=== PATIENT | male | born 1935 | race Caucasian/White ===

== ENCOUNTER 2016-07-24 08:31 | Outpatient (CLI) | payer MEDICARE, OTHER | END 2016-07-24 08:32 | disposition home or self-care (01) | DX: I10 Essential (primary) hypertension (principal); Z79.01 Long term (current) use of anticoagulants; E78.00 Pure hypercholesterolemia, unspecified ==

== ENCOUNTER 2016-08-23 08:08 | Outpatient (CLI) | payer MEDICARE, OTHER | END 2016-08-23 08:09 | disposition home or self-care (01) | DX: D75.89 Other specified diseases of blood and blood-forming organs (principal); R06.09 Other forms of dyspnea; R53.83 Other fatigue; D72.819 Decreased white blood cell count, unspecified ==

== ENCOUNTER 2016-09-02 08:21 | Outpatient (CLI) | payer MEDICARE, OTHER | END 2016-09-02 08:22 | disposition home or self-care (01) | DX: R06.00 Dyspnea, unspecified (principal); I07.1 Rheumatic tricuspid insufficiency ==

== ENCOUNTER 2016-09-06 08:29 | Outpatient (CLI) | payer MEDICARE, OTHER | END 2016-09-06 08:30 | disposition home or self-care (01) | LOC: LAB.F 08:29 | PROVIDERS: ATTEND Internal Medicine | DX: Z79.01 Long term (current) use of anticoagulants (principal) | CPT/HCPCS: 85610 ==

== ENCOUNTER 2016-09-26 16:10 | Outpatient (CLI) | payer MEDICARE, OTHER ==
--- NOTE | 2016-09-27 09:34 | XRAY Report ---
TWO VIEW CHEST: 09/26/2016 CLINICAL INDICATION: Dyspnea on exertion. COMPARISON: 09/30/2015. FINDINGS: Frontal and lateral views of the chest demonstrate a normal cardiac silhouette. There is a left subclavian single-chamber pacemaker now in place. The lungs are clear. No effusion or pneumotho rax is present. IMPRESSION: NEW LEFT SUBCLAVIAN PACEMAKER. NO EVIDENCE OF ACUTE CARDIOPULMONARY DISEASE. JOB #: [id number] EXT JOB #:[id number]
== END 2016-09-26 16:11 | disposition home or self-care (01) ==
LOC: DI.S 16:10
PROVIDERS: ATTEND Internal Medicine
DX: R06.00 Dyspnea, unspecified (principal); Z95.0 Presence of cardiac pacemaker
CPT/HCPCS: 71020

== ENCOUNTER 2016-10-25 08:32 | Outpatient (CLI) | payer MEDICARE, OTHER ==
[2016-10-25 12:02] LABS: BASOPHILS % (AUTO) 0.4 %; EOSINOPHILS # (AUTO) 0.1 10^3/uL (0.0-0.7); EOSINOPHILS % (AUTO) 3.9 %; HCT - HEMATOCRIT 46.5 % (42.0-52.0); HGB - HEMOGLOBIN 15.8 g/dL (14.0-18.0); LYMPHOCYTES % (AUTO) 27.6 %; MEAN CORPUSCULAR HEMOGLOBIN 34.7 pg (27.0-31.0); MEAN CORPUSCULAR HGB CONC 34.1 g/dL (32.0-36.0); MEAN CORPUSCULAR VOLUME 101.8 fL (80.0-94.0); MEAN PLATELET VOLUME 10.7 fL (7.4-11.4); MONOCYTES # (AUTO) 0.4 10^3/uL (0.0-1.0); MONOCYTES % (AUTO) 11.8 %; NEUTROPHILS % (AUTO) 56.3 %; NUCLEATED RED BLOOD CELLS AUTO 0.1 /100WBC; RED BLOOD COUNT 4.56 10^6/uL (4.70-6.10); RED CELL DISTRIBUTION WIDTH 13.4 % (12.0-15.0); UNCORRECTED WHITE BLOOD COUNT 3.5 x10^3/uL; WHITE BLOOD COUNT 3.5 x10^3/uL (4.8-10.8)
[2016-10-25 12:20] LABS: CALCIUM 9.4 mg/dL (8.5-10.3); CREATININE 0.8 mg/dL (0.6-1.2); POTASSIUM 4.9 mmol/L (3.5-5.0)
== END 2016-10-25 08:33 | disposition home or self-care (01) ==
LOC: LAB.F 08:32
PROVIDERS: ATTEND Internal Medicine
DX: I10 Essential (primary) hypertension (principal); R06.09 Other forms of dyspnea
CPT/HCPCS: 36415; 80048; 83880; 85025

== ENCOUNTER 2016-11-28 07:59 | Outpatient (CLI) | payer MEDICARE, OTHER | END 2016-11-28 08:00 | disposition home or self-care (01) | LOC: LAB.F 07:59 | PROVIDERS: ATTEND Internal Medicine | DX: Z79.01 Long term (current) use of anticoagulants (principal) | CPT/HCPCS: 85610 ==

== ENCOUNTER 2016-12-30 10:58 | Outpatient (CLI) | payer MEDICARE, OTHER | END 2016-12-30 10:59 | disposition home or self-care (01) | LOC: LAB.F 10:58 | PROVIDERS: ATTEND Internal Medicine | DX: Z79.01 Long term (current) use of anticoagulants (principal) | CPT/HCPCS: 85610 ==

== ENCOUNTER 2017-02-04 07:20 | Outpatient (CLI) | payer MEDICARE, OTHER ==
[2017-02-04 12:14] LABS: INR 3.4 (0.8-1.2); PT - PROTHROMBIN TIME 38.5 secs (9.9-12.6)
== END 2017-02-04 07:21 | disposition home or self-care (01) ==
LOC: LAB.F 07:20
PROVIDERS: ATTEND Internal Medicine
DX: Z79.01 Long term (current) use of anticoagulants (principal)
CPT/HCPCS: 36415; 85610

== ENCOUNTER 2017-02-10 07:25 | Outpatient (CLI) | payer MEDICARE, OTHER | END 2017-02-10 07:26 | disposition home or self-care (01) | LOC: LAB.F 07:25 | PROVIDERS: ATTEND Internal Medicine | DX: Z79.01 Long term (current) use of anticoagulants (principal) | CPT/HCPCS: 85610 ==

== ENCOUNTER 2017-03-07 07:22 | Outpatient (CLI) | payer MEDICARE, OTHER | END 2017-03-07 07:23 | disposition home or self-care (01) | LOC: LAB.F 07:22 | PROVIDERS: ATTEND Physician Assistant Medical | DX: Z79.01 Long term (current) use of anticoagulants (principal); I48.91 Unspecified atrial fibrillation | CPT/HCPCS: 85610 ==

== ENCOUNTER 2017-03-17 07:20 | Outpatient (CLI) | payer MEDICARE, OTHER | END 2017-03-17 07:21 | disposition home or self-care (01) | LOC: LAB.F 07:20 | PROVIDERS: ATTEND Physician Assistant Medical | DX: Z79.01 Long term (current) use of anticoagulants (principal); I48.91 Unspecified atrial fibrillation | CPT/HCPCS: 85610 ==

== ENCOUNTER 2017-03-31 08:06 | Outpatient (CLI) | payer MEDICARE, OTHER | END 2017-03-31 08:07 | disposition home or self-care (01) | LOC: LAB.F 08:06 | PROVIDERS: ATTEND Physician Assistant Medical | DX: Z79.01 Long term (current) use of anticoagulants (principal); I48.91 Unspecified atrial fibrillation | CPT/HCPCS: 85610 ==

== ENCOUNTER 2017-04-18 07:04 | Outpatient (CLI) | payer MEDICARE, OTHER ==
[2017-04-18 11:43] LABS: CALCIUM 9.4 mg/dL (8.5-10.3); CREATININE 0.8 mg/dL (0.6-1.2)
== END 2017-04-18 07:05 | disposition home or self-care (01) ==
LOC: LAB.F 07:04
PROVIDERS: ATTEND Physician Assistant Medical
DX: R06.02 Shortness of breath (principal); I51.9 Heart disease, unspecified
CPT/HCPCS: 36415; 80048; 83880

== ENCOUNTER 2017-04-21 15:41 | Emergency (ER) | payer MEDICARE, OTHER ==
[2017-04-21] MEDS ORDERED: SACCHAROMYCES BOULARDII 250 MG CAPSULE PO STA (17:21)
[2017-04-21] MEDS ORDERED: BENZONATATE 100 MG CAPSULE PO STA (17:21)
[2017-04-21] MEDS ORDERED: LOPERAMIDE 2 MG CAPSULE PO STA (17:21)
[2017-04-21] MEDS ORDERED: OSELTAMIVIR 75 MG CAPSULE PO STA (17:28)
--- NOTE | 2017-04-21 17:31 | ED Physician Documentation ---
History of Present Illness - Stated complaint Stated Complaint: COUGH/DIARRHEA - Chief complaint Chief Complaint: General PD PAST MEDICAL HISTORY - Past Medical History Past Medical History: Yes Cardiovascular: Hypertension, High cholesterol, [place] Respiratory: None Neuro: None Endocrine/Autoimmune: Type 1 diabetes GI: None : Benign prostate hypertrophy HEENT: Chronic vision loss Psych: None Musculoskeletal: None Derm: None - Past Surgical History Past Surgical History: Yes General: Appendectomy Ortho: Hip replacement Cardiovascular: Coronary stent - Present Medications Home Medications: Ambulatory Orders Medication Instructions Recorded Confirmed Alfuzosin HCl [Alfuzosin HCl ER] 10 mg PO DAILY 09/30/15 04/21/17 Aspirin [Aspir-Low] 81 mg PO DAILY 09/30/15 04/21/17 Finasteride 5 mg PO DAILY 09/30/15 04/21/17 Losartan [Cozaar] 25 mg PO DAILY 09/30/15 04/21/17 Metoprolol Tartrate 25 mg PO DAILY 09/30/15 04/21/17 Benzonatate [Tessalon] 100 mg PO TID PRN #20 capsule 04/21/17 Furosemide 20 mg PO DAILY 04/21/17 04/21/17 Loperamide [Imodium] 2 mg PO ONCE PRN #10 capsule 04/21/17 Oseltamivir [Tamiflu] 75 mg PO BID #9 capsule 04/21/17 Warfarin [Coumadin] 2.5 mg PO 1400 04/21/17 04/21/17 Warfarin [Coumadin] 5 mg PO 1400 04/21/17 04/21/17 - Allergies Allergies/Adverse Reactions: Allergies Allergy/AdvReac Type Severity Reaction Status Date / Time No Known Drug Allergies Allergy Verified 04/21/17 15:52 - Social History Does the pt smoke?: No Smoking Status: Never smoker Does the pt drink ETOH?: Yes Does the pt have substance abuse?: No - Immunizations Immunizations are current?: Yes Results - Vitals Vitals: Vital Signs - 24 hr 04/21/17 15:49 Temperature 37.8 C H Heart Rate 72 Respiratory 20 Rate Blood Pressure 128/48 L O2 Saturation 94 Oxygen O2 Source Room air - Labs Labs: Laboratory Tests 04/21/17 16:55 Influenza A (Rapid) POSITIVE H Influenza B (Rapid) Negative Influenza Types A,B Ag + H - Rads (name of study) CXR Radiology: See rad report (oswaldo bronchial wall thickening, atelectasis) Departure - Departure Disposition: 01 Home, Self Care Clinical Impression: Influenza A Condition: Good Instructions: ED Flu, Medication: Tamiflu (Oseltamivir) Follow-Up: Pao Ny PA-C [Primary Care Provider] - (this week for a recheck unless completely better) Prescriptions: Benzonatate [Tessalon] 100 mg PO TID PRN #20 capsule PRN Reason: to ease cough Loperamide [Imodium] 2 mg PO ONCE PRN #10 capsule PRN Reason: Diarrhea Oseltamivir [Tamiflu] 75 mg PO BID #9 capsule Comments: Influenza can be a very nasty disease. Right now it seems that you are OK to go home. take the tamiflu medication as prescribed, tessalon for the cough, imodium for the diarrhea, and tylenol for fever Rest and drink plenty of fluids But if you feel worse, please come back - some patients get so sick they need to be admitted to the hospital or develop a secondary infection such as pneumonia
--- NOTE | 2017-04-21 17:35 | XRAY Report ---
EXAM: CHEST RADIOGRAPHY EXAM DATE: 04/21/2017 04:57 PM. CLINICAL HISTORY: Cough. COMPARISON: Chest x-ray 09/30/2015. TECHNIQUE: 2 views. FINDINGS: Lungs/Pleura: No pleural effusion or pneumothorax. Bilateral bronchial wall thickening with minimal b asilar diskoid atelectasis. Mediastinum: Normal heart size with left-sided single lead pacemaker with tip at the expected right v entricular level. Aortic tortuosity with atherosclerotic calcification. Other: None. IMPRESSION: Bilateral bronchial wall thickening which can be seen in bronchitis or reactive airways d isease with basilar diskoid atelectasis. [facility] Referring Provider Line: [phone] SITE ID: [id number]
--- NOTE | 2017-04-21 17:35 | XRAY Preliminary Report ---
Exam: XR CHEST 2 VIEW X-RAY IMPRESSION: Bilateral bronchial wall thickening which can be seen in bronchitis or reactive airways d isease with basilar diskoid atelectasis. [facility] SITE ID: [id number]
[2017-04-21 17:58] VITALS: BP 140/74
== END 2017-04-21 17:58 | disposition home or self-care (01) ==
LOC: ED 15:41
DX: J10.1 Influenza due to other identified influenza virus with other respiratory manifestations (principal); E10.9 Type 1 diabetes mellitus without complications; I10 Essential (primary) hypertension; E78.00 Pure hypercholesterolemia, unspecified; Z79.82 Long term (current) use of aspirin
CPT/HCPCS: 71046; 87275; 87276; 99283; A9270

== ENCOUNTER 2017-04-29 07:09 | Outpatient (CLI) | payer MEDICARE, OTHER | END 2017-04-29 07:10 | disposition home or self-care (01) | LOC: LAB.F 07:09 | PROVIDERS: ATTEND Physician Assistant Medical | DX: Z79.01 Long term (current) use of anticoagulants (principal); I48.91 Unspecified atrial fibrillation | CPT/HCPCS: 85610 ==

== ENCOUNTER 2017-05-25 08:00 | Outpatient (CLI) | payer MEDICARE, OTHER | END 2017-05-25 23:59 | disposition home or self-care (01) | LOC: LAB.R 08:00 | PROVIDERS: ATTEND Physician Assistant Medical | DX: Z12.11 Encounter for screening for malignant neoplasm of colon (principal) | CPT/HCPCS: 82270 ==

== ENCOUNTER 2017-05-30 07:21 | Outpatient (CLI) | payer MEDICARE, OTHER | END 2017-05-30 07:22 | disposition home or self-care (01) | LOC: LAB.F 07:21 | PROVIDERS: ATTEND Physician Assistant Medical | DX: Z79.01 Long term (current) use of anticoagulants (principal); I48.91 Unspecified atrial fibrillation | CPT/HCPCS: 85610 ==

== ENCOUNTER 2017-06-04 07:07 | Outpatient (CLI) | payer MEDICARE, OTHER ==
[2017-06-04 12:11] LABS: CREATININE 0.9 mg/dL (0.6-1.2)
== END 2017-06-04 07:08 | disposition home or self-care (01) ==
LOC: LAB.F 07:07
PROVIDERS: ATTEND Internal Medicine Cardiovascular Disease
DX: R06.02 Shortness of breath (principal); I51.9 Heart disease, unspecified
CPT/HCPCS: 36415; 80048; 83880

== ENCOUNTER 2017-06-06 08:25 | Outpatient (CLI) | payer MEDICARE, OTHER | END 2017-06-06 08:26 | disposition home or self-care (01) | LOC: LAB.F 08:25 | PROVIDERS: ATTEND Physician Assistant Medical | DX: Z79.01 Long term (current) use of anticoagulants (principal); I48.91 Unspecified atrial fibrillation | CPT/HCPCS: 85610 ==

== ENCOUNTER 2017-06-13 07:10 | Outpatient (CLI) | payer MEDICARE, OTHER | END 2017-06-13 07:11 | disposition home or self-care (01) | LOC: LAB.F 07:10 | PROVIDERS: ATTEND Physician Assistant Medical | DX: I48.91 Unspecified atrial fibrillation (principal); Z79.01 Long term (current) use of anticoagulants | CPT/HCPCS: 85610 ==

== ENCOUNTER 2017-07-11 08:00 | Outpatient (CLI) | payer MEDICARE, OTHER | END 2017-07-11 08:01 | disposition home or self-care (01) | LOC: LAB.R 08:00 | PROVIDERS: ATTEND Physician Assistant Medical | DX: Z79.01 Long term (current) use of anticoagulants (principal); I48.91 Unspecified atrial fibrillation | CPT/HCPCS: 85610 ==

== ENCOUNTER 2017-08-11 07:13 | Outpatient (CLI) | payer MEDICARE, OTHER | END 2017-08-11 07:14 | disposition home or self-care (01) | LOC: LAB.F 07:13 | PROVIDERS: ATTEND Physician Assistant Medical | DX: Z79.01 Long term (current) use of anticoagulants (principal); I48.91 Unspecified atrial fibrillation | CPT/HCPCS: 85610 ==

== ENCOUNTER 2018-07-20 18:55 | Outpatient (CLI) | payer MEDICARE, OTHER | END 2018-07-20 18:56 | disposition critical access hospital (66) | LOC: EMS 18:55 | PROVIDERS: ATTEND Surgery | DX: R42 Dizziness and giddiness (principal); R11.2 Nausea with vomiting, unspecified | CPT/HCPCS: A0425; A0429 ==

== ENCOUNTER 2018-07-20 19:19 | Observation (INO) | payer MEDICARE, OTHER ==
--- NOTE | 2018-07-20 20:02 | ED Physician Documentation ---
PD HPI SYNCOPE - Stated complaint Stated Complaint: DIZZY, VOMITING - Chief complaint Chief Complaint: General - History obtained from History obtained from: Patient, Family - History of Present Illness Witnessed: Witnessed (He is sitting at the dinner table eating and had an abrupt onset of feeling nausea got sweaty pale and lightheaded. He did not have syncope. He denied choking. He did not have any headache chest pain or belly pain. He continued looking pale and diaphoretic and so his called EMS. They found him to still be diaphoretic. His blood pressure was slightly low at 100/60. Heart rate was okay. He did feel improved on route to the hospital.) Timing - onset: How many hours ago (/2) Duration: Minutes Preceding symptoms: Diaphoresis, Nausea / vomiting, Light headed, Generalized weakness. No: Headache, Chest pain, Dyspnea Associated symptoms: Diaphoresis, Nausea / vomiting. No: Headache, Chest pain, Palpitations Contributing factors: No: Recent med change, Decreased PO intake Similar symptoms before: Has not had sx before Recently seen: Surgery (He had right hip replacement a week ago and was in the hospital for 3 days. He has been home since that time. He is on a blood thinner. He has a history of atrial fibrillation with good rate control. He has a pacemaker in place. He has not noticed any pedal edema nor calf tenderness. He denied any chest pain or headache.) Review of Systems Constitutional: denies: Fever Nose: denies: Rhinorrhea / runny nose, Congestion Throat: denies: Sore throat Cardiac: denies: Chest pain / pressure, Palpitations, Pedal edema, Calf pain Respiratory: denies: Cough, Wheezing GI: denies: Abdominal Pain, Vomiting, Diarrhea, Bloody / black stool : denies: Dysuria, Frequency Skin: denies: Rash Neurologic: reports: Near syncope. denies: Altered mental status, Headache PD PAST MEDICAL HISTORY - Past Medical History Cardiovascular: Hypertension, High cholesterol, [place] Respiratory: None Endocrine/Autoimmune: Type 1 diabetes GI: None : Benign prostate hypertrophy HEENT: Chronic vision loss Psych: None Musculoskeletal: None Derm: None - Past Surgical History Past Surgical History: Yes General: Appendectomy Ortho: Hip replacement Cardiovascular: Coronary stent - Present Medications Home Medications: Ambulatory Orders Medication Instructions Recorded Confirmed Alfuzosin HCl [Alfuzosin HCl ER] 10 mg PO DAILY 09/30/15 06/30/18 Aspirin [Aspir-Low] 81 mg PO DAILY 09/30/15 06/30/18 Finasteride 5 mg PO DAILY 09/30/15 06/30/18 Losartan [Cozaar] 25 mg PO DAILY 09/30/15 06/30/18 Metoprolol Tartrate 150 mg PO DAILY 09/30/15 06/30/18 Furosemide 20 mg PO DAILY 04/21/17 06/30/18 Acetaminophen [Tylenol Extra 500 mg PO DAILY 06/03/17 06/30/18 Strength] Alfuzosin HCl [Alfuzosin HCl ER] 10 mg PO DAILY 06/03/17 06/30/18 Atorvastatin Calcium 40 mg PO DAILY 06/03/17 06/30/18 Apixaban [Eliquis] 1 tab PO BID 09/02/17 06/30/18 - Allergies Allergies/Adverse Reactions: Allergies Allergy/AdvReac Type Severity Reaction Status Date / Time No Known Drug Allergies Allergy Verified 04/21/17 15:52 - Social History Does the pt smoke?: No Smoking Status: Never smoker Does the pt drink ETOH?: Yes Does the pt have substance abuse?: No - Immunizations Immunizations are current?: Yes PD ED PE NORMAL - Vitals Vital signs reviewed: Yes - General General: Alert and oriented X 3, No acute distress, Well developed/nourished - HEENT HEENT: PERRL, Moist mucous membranes, Pharynx benign - Neck Neck: Supple, no meningeal sign, No adenopathy - Cardiac Cardiac: RRR, No murmur, Other (pacemaker pouch left upper chest without redness nor tenderness. ) - Respiratory Respiratory: Clear bilaterally - Abdomen Abdomen: Soft, Non tender - Back Back: No CVA TTP - Derm Derm: Normal color, Warm and dry - Extremities Extremities: No tenderness to palpate, Normal ROM s pain, No edema, No calf tenderness / cord, Other (right hip with reasonable post op ROM. ) - Neuro Neuro: Alert and oriented X 3, No motor deficit, Normal speech Results - Vitals Vitals: Vital Signs - 24 hr 07/20/18 07/20/18 07/20/18 19:26 19:29 21:41 Temperature 36.3 C L Heart Rate 70 66 80 Respiratory 16 16 19 Rate Blood Pressure 102/68 102/68 121/74 O2 Saturation 94 97 100 04/01/19 23:48 Temperature Heart Rate 91 Respiratory 16 Rate Blood Pressure 114/60 O2 Saturation 97 Oxygen O2 Source Room air - EKG (time done) 19:27 Rate: Rate (enter#) (69) Rhythm: Paced [place]: Normal Ischemia: Non specific changes - Labs Labs: Laboratory Tests 07/20/18 07/20/18 07/20/18 20:40 20:40 20:40 WBC 5.4 RBC 2.96 L Hgb 10.6 L Hct 30.7 L MCV 103.8 H MCH 35.9 H MCHC 34.6 RDW 13.9 Plt Count 98 L MPV 10.2 Neut # (Auto) Not Reportable Lymph # (Auto) Not Reportable Kay # (Auto) Not Reportable Eos # (Auto) Not Reportable Baso # (Auto) Not Reportable Absolute Nucleated RBC Not Reportable Total Counted 100 Band Neuts % (Manual) 4 Abnorm Lymph % (Manual) 0 Nucleated RBC % Not Reportable Neutrophils # (Manual) 4.5 Lymphocytes # (Manual) 0.4 L Monocytes # (Manual) 0.4 Eosinophils # (Manual) 0.0 Basophils # (Manual) 0.0 Differential Comment MANUAL DIFFERENTIAL WBC Morphology NORMAL APPEARANCE Platelet Estimate DECREASED (<130,000) Platelet Morphology NORMAL APPEARANCE RBC Morph Micro Appear 2+ MACROCYTOSIS D-Dimer Sodium 131 L Potassium 3.6 Chloride 96 L Carbon Dioxide 27 Anion Gap 8.0 BUN 25 H Creatinine 0.7 Estimated GFR (MDRD) 108 Glucose 125 H Calcium 8.8 Magnesium 2.2 Total Bilirubin 2.3 H AST 123 H ALT 153 H Alkaline Phosphatase 188 H Troponin I < 0.04 B-Natriuretic Peptide Total Protein 6.8 Albumin 2.9 L Globulin 3.9 Albumin/Globulin Ratio 0.7 L Lipase 47 07/20/18 07/20/18 07/20/18 20:40 20:40 23:24 WBC RBC Hgb Hct MCV MCH MCHC RDW Plt Count MPV Neut # (Auto) Lymph # (Auto) Kay # (Auto) Eos # (Auto) Baso # (Auto) Absolute Nucleated RBC Total Counted Band Neuts % (Manual) Abnorm Lymph % (Manual) Nucleated RBC % Neutrophils # (Manual) Lymphocytes # (Manual) Monocytes # (Manual) Eosinophils # (Manual) Basophils # (Manual) Differential Comment WBC Morphology Platelet Estimate Platelet Morphology RBC Morph Micro Appear D-Dimer 681.6 H Sodium Potassium Chloride Carbon Dioxide Anion Gap BUN Creatinine Estimated GFR (MDRD) Glucose Calcium Magnesium Total Bilirubin AST ALT Alkaline Phosphatase Troponin I < 0.04 B-Natriuretic Peptide 217 H Total Protein Albumin Globulin Albumin/Globulin Ratio Lipase - Rads (name of study) RUQ Abd U/S Radiology: Prelim report reviewed (Some sludge in the gallbladder. No stones nor wall thickening. The common bile duct is normal at 5 mm.) chest angio Radiology: Prelim report reviewed (No obvious abnormality. No signs of emboli.), See rad report PD MEDICAL DECISION MAKING - ED course Complexity details: considered differential (The patient is one-week postop hip surgery. Concern would be for blood clots even though he is on Eliquis. He does not have any calf tenderness no pedal edema. However his be is d-dimer is elevated and so we did a chest CT LEE which did not show any clots. He does have an elevation of his liver enzymes without any pain or tenderness but would evaluate for biliary cause and did an ultrasound which did not show any acute process either. Otherwise his other labs are good. His blood sugar was adequate. Other concern would be an acute [place] with a diaphoresis nausea lightheadedness and weakness. He did not have chest pain per se but is not required. EKG is paced so hard to interpret. Initial cardiac enzyme is negative. At this point it think he needs to have sequential troponin levels for concern of cardiac event and watched on telemetry.), d/w patient, d/w family Departure - Departure Disposition: ED Place in Observation Clinical Impression: Near syncope, Diaphoresis, Chest pain, rule out acute myocardial infarction Condition: Stable Record reviewed to determine appropriate education?: Yes Discharge Date/Time: 07/21/18 02:12
[2018-07-20] MEDS ORDERED: SODIUM CHLORIDE 0.9% 1,000 ML IV ONE (20:29)
[2018-07-20 20:45] LABS: BASOPHILS % (AUTO) 0.5 %; EOSINOPHILS % (AUTO) 1.2 %; HGB - HEMOGLOBIN 10.6 g/dL (14.0-18.0); LYMPHOCYTES % (AUTO) 9.4 %; MEAN CORPUSCULAR HEMOGLOBIN 35.9 pg (27.0-31.0); MEAN CORPUSCULAR HGB CONC 34.6 g/dL (32.0-36.0); MEAN CORPUSCULAR VOLUME 103.8 fL (80.0-94.0); MEAN PLATELET VOLUME 10.2 fL (7.4-11.4); MONOCYTES % (AUTO) 12.6 %; NEUTROPHILS % (AUTO) 76.3 %; PLT - PLATELET COUNT 98 10^3/uL (130-450); RED BLOOD COUNT 2.96 10^6/uL (4.70-6.10); RED CELL DISTRIBUTION WIDTH 13.9 % (12.0-15.0); WHITE BLOOD COUNT 5.4 x10^3/uL (4.8-10.8)
[2018-07-20 20:53] LABS: ABNORMAL LYMPHS % (MANUAL) 0 %
[2018-07-20 20:58] LABS: ALBUMIN 2.9 g/dL (3.2-5.5); ALBUMIN/GLOBULIN RATIO 0.7 (1.0-2.2); BILIRUBIN,TOTAL 2.3 mg/dL (0.2-1.0); CALCIUM 8.8 mg/dL (8.5-10.3); CREATININE 0.7 mg/dL (0.6-1.2); MAGNESIUM 2.2 mg/dL (1.7-2.8); TOTAL PROTEIN 6.8 g/dL (6.7-8.2)
[2018-07-20] MEDS ORDERED: IOPAMIDOL-300 100 ML VIAL ONE (21:33)
[2018-07-20] MEDS ORDERED: MECLIZINE 12.5 MG TABLET PO STA (21:34)
[2018-07-20] MEDS ORDERED: oxyCODONE 5 MG TABLET PO STA (21:35)
[2018-07-20 22:00] LABS: BAND NEUTROPHILS % (MANUAL) 4 %; LYMPHOCYTES # (MANUAL) 0.4 10^3/uL (1.5-3.5); LYMPHOCYTES % (MANUAL) 8 %; MONOCYTES # (MANUAL) 0.4 10^3/uL (0.0-1.0); NEUTROPHILS # (MANUAL) 4.5 10^3/uL (1.5-6.6); NEUTROPHILS % (MANUAL) 80 %
[2018-07-20 22:05] LABS: PLATELET ESTIMATE, MANUAL DECREASED (<130,000) (NORMAL); RBC MORPHOLOGY (MULTIPLE) 2+ MACROCYTOSIS (NORMAL)
[2018-07-20 22:06] LABS: PLATELET MORPHOLOGY NORMAL APPEARANCE (NORMAL)
[2018-07-20 22:07] LABS: DIFFERENTIAL COMMENT MANUAL DIFFERENTIAL
[2018-07-20] MEDS ORDERED: IOPAMIDOL-300 100 ML VIAL IVP ONE (22:45)
--- NOTE | 2018-07-20 22:46 | Ultrasound Report ---
Reason: abrupt nausea/sweaty; elevated LFTs Procedure Date: 07/20/2018 Accession Number: [id number] / [id number] Procedure: US - Abdomen Limited CPT Code: FULL RESULT: EXAM: ABDOMEN ULTRASOUND LIMITED, RIGHT UPPER QUADRANT. EXAM DATE: 07/20/2018 09:48 PM. CLINICAL HISTORY: Abrupt nausea/sweaty; elevated liver function tests. COMPARISON: ABDOMEN/PELVIS W/WO 08/11/2014 9:16 AM. TECHNIQUE: Real-time scanning was performed with static images obtained. FINDINGS: Liver: Normal in size and echotexture. Left liver echogenic 12 mm nodule is probably a hemangioma but not clearly seen on previous CT imaging. Main portal vein flow: Hepatopetal. Gallbladder: Minimal sludge. No shadowing stones, wall thickening, or sonographic Pérez's sign. Biliary System: CBD measures 6 mm. No intrahepatic or extrahepatic ductal dilatation. Other: Exophytic right renal cyst, nearly 5 cm. IMPRESSION: 1. No cholelithiasis or evidence of cholecystitis. 2. Left liver 12 mm echogenic nodule is probably a hemangioma in the absence of a known malignancy. If clinically indicated, nonemergent follow-up hepatic MRI could be used for confirmation. [facility]
--- NOTE | 2018-07-21 | CT Report ---
Reason: post op hip; abrupt nausea and sweaty; high d-dime Procedure Date: 07/20/2018 Accession Number: [id number] / [id number] Procedure: CT - ANGIO CHEST W/WO CPT Code: FULL RESULT: EXAM: CT ANGIOGRAM CHEST EXAM DATE: 07/20/2018 10:47 PM. CLINICAL HISTORY: Post op hip; abrupt nausea and sweaty; high d-dime. COMPARISON: None. TECHNIQUE: Routine helical imaging was performed through the chest in the pulmonary arterial phase. IV Contrast: 80 cc Isovue-300. Reconstructions: Coronal 3-D MIP reconstructions.Sagittal and coronal. In accordance with CT protocol optimization, one or more of the following dose reduction techniques were utilized for this exam: automated exposure control, adjustment of mA and/or KV based on patient size, or use of iterative reconstructive technique. FINDINGS: Pulmonary Arteries: Diagnostic quality: Adequate through the segmental arteries. Suboptimal due to respiratory motion artifact. No definite evidence for acute or chronic pulmonary emboli. Lungs/Pleura: Dependent atelectasis is present. No suspicious nodule or mass. No pleural effusions. Mediastinum: Imaged portions of the thyroid are grossly unremarkable. Thoracic aorta and main pulmonary artery are normal caliber. Severe three-vessel coronary artery calcifications. Heart size is borderline enlarged. Cardiac leads are present. No pericardial effusion. Lymph Nodes: No mediastinal, hilar, or axillary adenopathy. Bones: No suspicious osseous lesions. Visualized chest wall is grossly unremarkable. Partially Imaged Upper Abdomen: No acute abnormalities. Bilateral renal cysts are present. IMPRESSION: No acute or chronic pulmonary embolus. Severe three-vessel coronary artery calcifications. [facility]
[2018-07-21] MEDS ORDERED: ONDANSETRON 4 MG/2 ML VIAL IVP PRN (01:12)
[2018-07-21] MEDS ORDERED: SODIUM CHLORIDE FLUSH 0.9% 10 ML SYRINGE IVP PRN (01:12)
--- NOTE | 2018-07-21 01:44 | HISTORY & PHYSICAL EXAMINATION ---
Chief Complaint - Chief Complaint Chief Complaint: presyncope History of Present Illness - Admitted From Admitted From:: [facility] ED - History Obtained From Records Reviewed: yes History obtained from: patient and spouse - History of Present Illness HPI Comment/Other: Patient is an 82 y/o male with a significant cardiac history who presented to the ED after a near syncopal episode. He was at the table eating dinner which was a beef stew when he suddenly became nauseous, diaphoretic and vomited twice. He denied any symptoms leading up to this. He denied chest pain or GRICELDA at any time. He denies abdominal pain as well. He reports dizziness when he stand ups. He had a right hip replacement last Friday at [facility] and was discharged home on percocet. He had been doing well with therapy. He uses a walker during this recovery phase. He complain of constipation. Work up in the ED included CT Angio for PE and troponin X 2 which were unrem arkable. He has history of CAD s/p stents. He has a pacemaker and is on eliquis for atrial fibrillation.. He is currently resting comfortably in his bed and denies any additional concerns History - Past Medical History Cardiovascular: reports: Hypertension, High cholesterol, [place] Respiratory: reports: None Endocrine/Autoimmune: reports: Type 1 diabetes GI: reports: None : reports: Benign prostate hypertrophy HEENT: reports: Chronic vision loss Psych: reports: None Musculoskeletal: reports: None Derm: reports: None MRSA Hx?: No - Past Surgical History General: reports: Appendectomy Ortho: reports: Hip replacement Cardiovascular: reports: Coronary stent Meds/Allgy - Home Medications Home Medications: Ambulatory Orders Medication Instructions Recorded Confirmed Alfuzosin HCl [Alfuzosin HCl ER] 10 mg PO DAILY 09/30/15 06/30/18 Aspirin [Aspir-Low] 81 mg PO DAILY 09/30/15 06/30/18 Finasteride 5 mg PO DAILY 09/30/15 06/30/18 Losartan [Cozaar] 25 mg PO DAILY 09/30/15 06/30/18 Metoprolol Tartrate 150 mg PO DAILY 09/30/15 06/30/18 Furosemide 20 mg PO DAILY 04/21/17 06/30/18 Acetaminophen [Tylenol Extra 500 mg PO DAILY 06/03/17 06/30/18 Strength] Alfuzosin HCl [Alfuzosin HCl ER] 10 mg PO DAILY 06/03/17 06/30/18 Atorvastatin Calcium 40 mg PO DAILY 06/03/17 06/30/18 Apixaban [Eliquis] 1 tab PO BID 09/02/17 06/30/18 - Allergies Allergies/Adverse Reactions: Allergies Allergy/AdvReac Type Severity Reaction Status Date / Time No Known Drug Allergies Allergy Verified 04/21/17 15:52 Review of Systems - Constitutional Constitutional: reports: Diaphoresis. denies: Fever, Chills - Eyes Eyes: denies: Blurred vision, Vision loss, Dipolpia - Ears, Nose & Throat Ears, Nose & Throat: denies: Vertigo, Sore throat, Hoarseness - Cardiovascular Cariovascular: reports: Irregular heart rate, Lightheadedness. denies: Chest pain, Edema, Exertional dyspnea, Decr. exercise tolerance - Respiratory Respiratory: denies: Wheezing, SOB at rest, SOB with exertion - Gastrointestinal Gastrointestinal: reports: Constipation, Nausea, Vomiting. denies: Abdominal pain, Diarrhea - Genitourinary Genitourinary: reports: Frequency. denies: Dysuria, Urgency, Hematuria, Incontinence - Musculoskeletal Musculoskeletal: denies: Muscle pain, Back pain, Muscle aches - Integumentary Integumentary: denies: Pruritis, Lesions, Dryness, Pigment changes, Nail changes - Neurological Neurological: reports: Dizziness. denies: Focal weakness, Headache, Numbness, Memory problems, Abnormal gait, Slurred speech - Psychiatric Psychiatric: denies: Depression, Anxiety - Endocrine Endocrine: denies: Polyuria, Polydypsia - Hematologic/Lymphatic Hematologic/Lymphatic: denies: Anemia Prior Level of Functionality: Independent of activities of daily living Lives with spouse Exam - Vital Signs Vital Signs: Vital Signs x48h Temp Pulse Resp BP Pulse Ox 07/20/18 23:48 91 16 114/60 97 07/20/18 21:41 80 19 121/74 100 07/20/18 19:29 66 16 102/68 97 07/20/18 19:26 36.3 C L 70 16 102/68 94 - Physical Exam General Appearance: positive: No acute distress, Alert Eyes Bilateral: positive: Normal inspection, PERRL, EOMI, Conjunctivae nml, No scleral icterus ENT: positive: ENT inspection nml, No signs of dehydration Neck: positive: Nml inspection, No JVD, Trachea midline Cardiovascular: positive: Irregularly irregular Abdomen: negative: Non-tender, No organomegaly, Nml bowel sounds, No distention, Tenderness Back: positive: Nml inspection Skin: positive: Color nml, No rash, Warm Extremities: positive: Non-tender, Full ROM, Nml appearance, No pedal edema Neurologic/Psychiatric: positive: Oriented x3 Conclusion/Plan - Problem List (1) Near syncope Conclusion/Plan: Etiology undetermined ?2/2 medication vs vasovagal vs arrhythmia vs hypotension Will check orthostatics. If positive, IV hydration Trend troponin X1 more. 2D echo ordered Patient on metoprolol, losartan, lasix. Hold lasix and losartan for now Hold opiate (2) Atrial fibrillation Conclusion/Plan: Rate controlled. On metoprolol On eliquis. Qualifiers: Atrial fibrillation type: chronic Qualified Code(s): I48.2 - Chronic atrial fibrillation (3) Hyperlipidemia Conclusion/Plan: On atorvastatin (4) CAD (coronary artery disease) Conclusion/Plan: s/p stents On aspirin, metoprolol, losartan, atorvastatin (5) BPH (benign prostatic hyperplasia) Conclusion/Plan: On alfuzosin and finasteride - Lab Results Fish Bones: 07/20/18 20:40 07/20/18 20:40 Core Measures - Anticipated LOS I expect patient to be DC'd or transferred within 96 hours.: Yes - DVT/VTE - Prophylaxis VTE/DVT Device ordered at admit?: Yes VTE/DVT Prophylaxis med ordered at admit?: No Not Ordered - Medical Reason: Not indicated
[2018-07-21 06:36] LABS: BASOPHILS % (AUTO) 0.6 %; EOSINOPHILS % (AUTO) 0.4 %; HGB - HEMOGLOBIN 11.1 g/dL (14.0-18.0); LYMPHOCYTES # (AUTO) 0.5 10^3/uL (1.5-3.5); LYMPHOCYTES % (AUTO) 10.1 %; MEAN CORPUSCULAR HEMOGLOBIN 35.6 pg (27.0-31.0); MEAN CORPUSCULAR HGB CONC 34.1 g/dL (32.0-36.0); MEAN CORPUSCULAR VOLUME 104.2 fL (80.0-94.0); MEAN PLATELET VOLUME 10.5 fL (7.4-11.4); MONOCYTES # (AUTO) 0.6 10^3/uL (0.0-1.0); MONOCYTES % (AUTO) 11.9 %; NEUTROPHILS # (AUTO) 4.1 10^3/uL (1.5-6.6); PLT - PLATELET COUNT 107 10^3/uL (130-450); RED BLOOD COUNT 3.12 10^6/uL (4.70-6.10); RED CELL DISTRIBUTION WIDTH 13.9 % (12.0-15.0); WHITE BLOOD COUNT 5.3 x10^3/uL (4.8-10.8)
[2018-07-21 06:49] LABS: ALBUMIN 2.9 g/dL (3.2-5.5); ALBUMIN/GLOBULIN RATIO 0.7 (1.0-2.2); BILIRUBIN,TOTAL 2.3 mg/dL (0.2-1.0); CALCIUM 8.8 mg/dL (8.5-10.3); CREATININE 0.6 mg/dL (0.6-1.2)
[2018-07-21 08:08] VITALS: BP 120/87
[2018-07-21] MEDS: ACETAMINOPHEN 325 MG TABLET PO PRN ×2 (08:25→12:24)
[2018-07-21] MEDS ORDERED: SODIUM CHLORIDE FLUSH 0.9% 10 ML SYRINGE IVP SCH (09:00)
[2018-07-21] MEDS ORDERED: POLYETHYLENE GLYCOL 3350 17 GM PACKET PO SCH (09:00)
[2018-07-21] MEDS ORDERED: METOPROLOL SUCCINATE 50 MG TABLET PO SCH (11:30)
[2018-07-21] MEDS ORDERED: APIXABAN 2.5 MG TABLET PO SCH (12:00)
--- NOTE | 2018-07-21 13:36 | Discharge Plan ---
Discharge Plan Disposition: 01 Home, Self Care Condition: Poor Prescriptions: Atorvastatin Calcium 20 mg PO QPM #15 tablet Diet: Regular Activity Restrictions: Activity as Tolerated Shower Restrictions: No (fall precaution) Instruction Topics: Syncope, ALT, Atorvastatin tablets Additional Instructions or Follow Up instructions: You may followup your PCP in one week and may have followup liver enzyme test, may have followup hepatic MRI in two weeks as out-pt to monitor echogenic nodule of liver. your Lipitor dosage is reduced to 20mg daily due to elevated liver en zyme. Should your symptoms return or worsen, you may present ER or call 911, or your PCP for help. No Smoking: If you smoke, Please STOP! Call for help. Follow-up with: Pao Ny PA-C [Primary Care Provider] -
--- NOTE | 2018-07-21 13:43 | DISCHARGE SUMMARY ---
Discharge Summary Discharge Date: 07/21/18 Discharging Provider: MATT Primary Care Provider: Pao Arora Condition at Discharge: Poor Discharge Disposition: 01 Home, Self Care Discharge Facility Name: home - DIAGNOSES Admission Diagnoses: (1) Near syncope (2) Atrial fibrillation (3) Hyperlipidemia (4) CAD (coronary artery disease) (5) BPH (benign prostatic hyperplasia) Discharge Diagnoses with Status of Each Condition: 1) Near syncope (2) Atrial fibrillation (3) Hyperlipidemia (4) CAD (coronary artery disease) (5) BPH (benign prostatic hyperplasia) (6) elevated liver enzyme - HPI History of Present Illness: Patient is an 82 y/o male with a significant cardiac history who presented to the ED after a near syncopal episode. He was at the table eating dinner which was a beef stew when he suddenly became nauseous, diaphoretic and vomited twice. He denied any symptoms leading up to this. He denied chest pain or GRICELDA at any time. He denies abdominal pain as well. He reports dizziness when he stand ups. He had a right hip replacement last Friday at [facility] and was discharged home on percocet. He had been doing well with therapy. He uses a walker during this recovery phase. He complain of constipation. Work up in the ED included CT Angio for PE and troponin X 2 which were unremarkable. He has history of CAD s/p stents. He has a pacemaker and is on eliquis for atrial fibrillation.. He is currently resting comfortably in his bed and denies any additional concerns - HOSPITAL COURSE Hospital Course: (1) Near syncope pt's ECHO reveals normal EF(I called US tech, she did not put on [employer]) but elevated RVSP to 57mmHG. EKG has no acute change previous three years ago. Serial Troponin was negative. pt has no seizure hx. pt report he had one episode of N/V before near-syncope. Pt showed dehydration, It seems to be the cause of near syncope. pt was hydration at hospital. (2) Atrial fibrillation Conclusion/Plan: stable, continue Eliquis, followup PCP (3) Hyperlipidemia Conclusion/Plan: stable, reduced Lipitor to 20mg daily from 40mg due to pt's elevated liver enzyme (4) CAD (coronary artery disease) Conclusion/Plan: stable, continue home meds, followup PCP (5) BPH (benign prostatic hyperplasia) stable, followup home meds (6) elevated liver enzyme Unknown etiology. Lipitor dosage is reduced now. elevated liver enzyme is decreased now. US of liver indicates hemangioma, followup MRI in two weeks is advised to pt, advise pt followup PCP to continue monitor liver enzyme by PCP in one week. - ALLERGIES Allergies/Adverse Reactions: Allergies Allergy/AdvReac Type Severity Reaction Status Date / Time No Known Drug Allergies Allergy Verified 04/21/17 15:52 - MEDICATIONS Home Medications: Ambulatory Orders Medication Instructions Recorded Confirmed Aspirin [Aspir-Low] 81 mg PO DAILY 09/30/15 07/21/18 Finasteride 5 mg PO DAILY 09/30/15 07/21/18 Furosemide 10 mg PO DAILY 04/21/17 07/21/18 Alfuzosin HCl [Alfuzosin HCl ER] 10 mg PO DAILY 06/03/17 07/21/18 Apixaban [Eliquis] 2.5 mg PO BID 09/02/17 07/21/18 Atorvastatin Calcium 20 mg PO QPM #15 tablet 07/21/18 Losartan Potassium 25 mg PO DAILY 07/21/18 07/21/18 Metoprolol Succinate 150 mg PO DAILY 07/21/18 07/21/18 - PHYSICAL EXAM AT DISCHARGE General Appearance: positive: No acute distress, Alert. negative: Lethargic Eyes Bilateral: positive: Normal inspection, PERRL, No lid inflammation, Conjunctivae nml ENT: positive: ENT inspection nml, Pharynx nml, No signs of dehydration. negative: Purulent nasal drainage, Pharyngeal erythema, Oral lesions Neck: positive: Nml inspection, Thyroid nml, No JVD, Trachea midline. negative: Thyromegaly, Lymphadenopathy (R), Lymphadenopathy (L), Stiff neck, Swelling/bruising, Tracheal deviation Respiratory: positive: Chest non-tender, No respiratory distress, Breath sounds nml. negative: Wheezes, Rales, Rhonchi Cardiovascular: positive: Regular rate & rhythm, No murmur, No gallop. negative: Irregularly irregular, Extrasystoles, Tachycardia, Bradycardia, Systolic murmur, Diastolic murmur Peripheral Pulses: positive: 2+ Abdomen: positive: Non-tender, No organomegaly, Nml bowel sounds, No distention. negative: Tenderness, Guarding, Rebound Back: positive: Nml inspection. negative: CVA tenderness (R), CVA tenderness (L) Skin: positive: Color nml, No rash, Warm, Dry. negative: Cyanosis, Diaphoresis, Pallor Extremities: positive: Non-tender, Full ROM, Nml appearance. negative: Calf tenderness, Joint swelling, Tatum's sign/cords Neurologic/Psychiatric: positive: Oriented x3, Motor nml, Sensation nml, Mood/affect nml. negative: Weakness, Sensory loss, Facial droop, Slurred/abnml speech, Depressed mood/affect - LABS Result Diagrams: 07/21/18 06:30 07/21/18 06:30 - FOLLOW UP Follow Up: You may followup your PCP in one week and may have followup liver enzyme test, may have followup hepatic MRI in two weeks as out-pt to monitor echogenic nodule of liver. your Lipitor dosage is reduced to 20mg daily due to elevated liver enzyme. Should your symptoms return or worsen, you may present ER or call 911, or your PCP for help. - TIME SPENT Time Spent in Discharge (Minutes): 60
[2018-07-21] MEDS ORDERED: TAMSULOSIN 0.4 MG CAPSULE PO SCH (21:00)
[2018-07-22] MEDS ORDERED: FINASTERIDE 5 MG TABLET PO SCH (09:00)
[2018-07-22] MEDS ORDERED: ASPIRIN EC 81 MG TABLET PO SCH (09:00)
[2018-07-22] MEDS ORDERED: LOSARTAN 50 MG TABLET PO SCH (09:00)
[2018-07-22 14:38] LABS: HEPATITIS A IGM NON-REACTIVE (NON-REACTIVE); HEPATITIS B CORE ANTIBODY IGM NON-REACTIVE (NON-REACTIVE); HEPATITIS B SURFACE ANTIGEN NON-REACTIVE (NON-REACTIVE); HEPATITIS C ANTIBODY NON-REACTIVE (NON-REACTIVE)
== END 2018-07-21 14:00 | disposition home or self-care (01) ==
LOC: EDUNIT# → ED 19:19 → OBS 07-21 01:12
PROVIDERS: ADMIT Internal Medicine; ATTEND Nurse Practitioner Gerontology
DX: R55 Syncope and collapse (principal); E86.0 Dehydration; I48.2 Chronic atrial fibrillation; E78.5 Hyperlipidemia, unspecified; I25.10 Atherosclerotic heart disease of native coronary artery without angina pectoris; N40.0 Benign prostatic hyperplasia without lower urinary tract symptoms; R74.8 Abnormal levels of other serum enzymes; R79.89 Other specified abnormal findings of blood chemistry; R93.2 Abnormal findings on diagnostic imaging of liver and biliary tract; R61 Generalized hyperhidrosis; R11.2 Nausea with vomiting, unspecified; K59.00 Constipation, unspecified; I10 Essential (primary) hypertension; E10.9 Type 1 diabetes mellitus without complications; I25.2 Old myocardial infarction; Z96.641 Presence of right artificial hip joint; Z79.01 Long term (current) use of anticoagulants; Z95.0 Presence of cardiac pacemaker; Z95.5 Presence of coronary angioplasty implant and graft; Z79.82 Long term (current) use of aspirin; Z79.899 Other long term (current) drug therapy
CPT/HCPCS: 36415; 71275; 76705; 80053; 80074; 83690; 83735; 83880; 84484; 85025; 85379; 93005; 93306; 96360; 96361; 99284; A9270; G0378; Q9967

== ENCOUNTER 2018-07-29 14:41 | Outpatient (CLI) | payer MEDICARE, OTHER ==
--- NOTE | 2018-07-29 15:55 | CT Report ---
Reason: DIZZINESS,BLURRED VISION Procedure Date: 07/29/2018 Accession Number: [id number] / [id number] Procedure: CT - HEAD WO CPT Code: FULL RESULT: EXAM: CT HEAD WITHOUT IV CONTRAST EXAM DATE: 07/29/2018 03:16 PM. CLINICAL HISTORY: Dizziness, blurred vision. COMPARISON: None. TECHNIQUE: Multiaxial CT images were obtained from the foramen magnum to the vertex. Reformats: Sagittal and coronal. IV contrast: None. In accordance with CT protocol optimization, one or more of the following dose reduction techniques were utilized for this exam: automated exposure control, adjustment of mA and/or KV based on patient size, or use of iterative reconstructive technique. FINDINGS: Parenchyma: No intraparenchymal hemorrhage. No evidence of mass, midline shift, or CT findings of infarction. Mendez-white differentiation is distinct. Extraaxial Spaces: Normal for age. No subdural or epidural collections identified. Ventricles: Normal in size and position. Sinuses and Orbits: Imaged paranasal sinuses, orbits, and mastoids show no significant abnormality. Bones: No evidence of fracture or calvarial defect. Other: None. IMPRESSION: No acute intracranial abnormality is detected. RADIA
== END 2018-07-29 14:42 | disposition home or self-care (01) ==
LOC: DI 14:41
PROVIDERS: ATTEND Physician Assistant Medical
DX: R42 Dizziness and giddiness (principal); H53.8 Other visual disturbances
CPT/HCPCS: 70450

== ENCOUNTER 2018-08-03 11:20 | Outpatient (CLI) | payer MEDICARE, OTHER ==
[2018-08-03 18:17] LABS: BASOPHILS % (AUTO) 1.1 %; EOSINOPHILS % (AUTO) 0.8 %; HGB - HEMOGLOBIN 13.5 g/dL (14.0-18.0); LYMPHOCYTES % (AUTO) 27.3 %; MEAN CORPUSCULAR HGB CONC 33.1 g/dL (32.0-36.0); MEAN CORPUSCULAR VOLUME 105.5 fL (80.0-94.0); MEAN PLATELET VOLUME 10.4 fL (7.4-11.4); MONOCYTES % (AUTO) 9.2 %; NEUTROPHILS % (AUTO) 61.6 %; PLT - PLATELET COUNT 154 10^3/uL (130-450); RED BLOOD COUNT 3.85 10^6/uL (4.70-6.10); RED CELL DISTRIBUTION WIDTH 14.5 % (12.0-15.0); WHITE BLOOD COUNT 2.1 x10^3/uL (4.8-10.8)
[2018-08-03 18:49] LABS: CALCIUM 9.6 mg/dL (8.5-10.3); CREATININE 0.7 mg/dL (0.6-1.2)
[2018-08-03 19:04] LABS: ABNORMAL LYMPHS % (MANUAL) 0 %
[2018-08-03 20:32] LABS: BAND NEUTROPHILS % (MANUAL) 1 %; BASOPHILS % (MANUAL) 1 %; EOSINOPHILS # (MANUAL) 0.1 10^3/uL (0-0.7); LYMPHOCYTES # (MANUAL) 0.6 10^3/uL (1.5-3.5); LYMPHOCYTES % (MANUAL) 28 %; MONOCYTES # (MANUAL) 0.3 10^3/uL (0.0-1.0); MYELOCYTES % (MANUAL) 1 %; NEUTROPHILS # (MANUAL) 1.1 10^3/uL (1.5-6.6); NEUTROPHILS % (MANUAL) 50 %
[2018-08-03 20:33] LABS: DIFFERENTIAL COMMENT MANUAL DIFFERENTIAL; PLATELET ESTIMATE, MANUAL NORMAL (130-450,000) (NORMAL); PLATELET MORPHOLOGY NORMAL APPEARANCE (NORMAL); RBC MORPHOLOGY (MULTIPLE) NORMAL APPEARANCE (NORMAL)
== END 2018-08-03 11:21 | disposition home or self-care (01) ==
LOC: LAB.F 11:20
PROVIDERS: ATTEND Registered Nurse
DX: R42 Dizziness and giddiness (principal)
CPT/HCPCS: 36415; 80048; 85025

== ENCOUNTER 2018-10-26 11:49 | Emergency (ER) | payer MEDICARE, OTHER ==
[2018-10-26 11:59] VITALS: BP 135/100
--- NOTE | 2018-10-26 12:29 | ED Physician Documentation ---
PD HPI OPHTHO - Stated complaint Stated Complaint: sds - Chief complaint Chief Complaint: General - History obtained from History obtained from: Patient - History of Present Illness Timing - onset: How many months ago (4) Timing - duration: Months (4) Timing - details: Gradual onset (he noted problems with balance with walking after hip replacement right side. No focal weakness. Not having vertigo per se, but feels off balance with walking. No problems with arm/leg coordination and use with sitting. had CT head at early symptoms. Labs okay as well. Has been to PMD and ENT Dr Romero, with PT ordered (Markos initially, now with some different therapy) and will get comprehensive hearing test this coming week. No meds Rx. He has had URi symptoms of congestion and some cough. Has feeling of right eye irritation. Today in PT, the therapist thought his right eye had sluggish small pupil and eyelid was droopy. Referred to ED for evaluation.), Still present Associated symptoms: Redness, Swelling, Tearing (since yesterday). No: Discharge, FB sensation, Photophobia Contributing factors: Recent URI (has congestion and some cough, some sinus pressure. No periorbital lesions and no pain with eye movement.). No: Exposed to conjunctivitis Similar symptoms before: No diagnosis Recently seen: Clinic (seen ENT Dr Romero regarding ongoing ataxia and had different PT ordered.) Review of Systems Constitutional: denies: Fever, Chills, Myalgias Eyes: denies: Decreased vision, Photophobia Ears: denies: Loss of hearing, Ear pain Nose: reports: Rhinorrhea / runny nose, Congestion Throat: reports: Sore throat Cardiac: denies: Chest pain / pressure Respiratory: reports: Cough. denies: Dyspnea Musculoskeletal: denies: Neck pain, Back pain Neurologic: denies: Focal weakness, Numbness, Near syncope PD PAST MEDICAL HISTORY - Past Medical History Cardiovascular: Hypertension, High cholesterol, CT Respiratory: None Endocrine/Autoimmune: Type 1 diabetes GI: None : Benign prostate hypertrophy HEENT: Chronic vision loss Psych: None Musculoskeletal: None Derm: None - Past Surgical History Past Surgical History: Yes General: Appendectomy Ortho: Hip replacement Cardiovascular: Coronary stent - Present Medications Home Medications: Ambulatory Orders Medication Instructions Recorded Confirmed Aspirin [Aspir-Low] 81 mg PO DAILY 09/30/15 07/21/18 Finasteride 5 mg PO DAILY 09/30/15 07/21/18 Furosemide 10 mg PO DAILY 04/21/17 07/21/18 Alfuzosin HCl [Alfuzosin HCl ER] 10 mg PO DAILY 06/03/17 07/21/18 Apixaban [Eliquis] 2.5 mg PO BID 09/02/17 07/21/18 Atorvastatin Calcium 20 mg PO QPM #15 tablet 07/21/18 Losartan Potassium 25 mg PO DAILY 07/21/18 07/21/18 Metoprolol Succinate 150 mg PO DAILY 07/21/18 07/21/18 Meclizine HCl [Motion Sickness 25 mg PO Q8H PRN #30 tablet 10/26/18 Relief] Sulfacetamide 10% Ophth Drops 2 drops OPTH Q3H #1 bottle 10/26/18 [Sulfamide 10% Ophth Drops] dexAMETHasone [Decadron] 4 mg PO DAILY #5 tablet 10/26/18 - Allergies Allergies/Adverse Reactions: Allergies Allergy/AdvReac Type Severity Reaction Status Date / Time No Known Drug Allergies Allergy Verified 10/26/18 11:59 - Social History Does the pt smoke?: No Smoking Status: Never smoker Does the pt drink ETOH?: Yes Does the pt have substance abuse?: No - Immunizations Immunizations are current?: Yes PD ED PE NORMAL - Vitals Vital signs reviewed: Yes - General General: Alert and oriented X 3, No acute distress, Well developed/nourished - HEENT HEENT: PERRL (slight asymmetry pupil size right to left, but both react. ), EOMI (mild nystagmus to the right), Pharynx benign - Neck Neck: Supple, no meningeal sign, No adenopathy, No JVD, No bruit - Cardiac Cardiac: RRR, No murmur - Respiratory Respiratory: Clear bilaterally - Abdomen Abdomen: Soft, Non tender - Derm Derm: Normal color, Warm and dry - Extremities Extremities: No deformity, No tenderness to palpate, Normal ROM s pain - Neuro Neuro: Alert and oriented X 3, route sales driver 2-12 intact, No motor deficit, No sensory deficit, Normal speech Eye Opening: Spontaneous Motor: Obeys Commands Verbal: Oriented GCS Score: 15 - Psych Psych: Normal mood PD ED PE EXPANDED - Eyes Eyes: PERRL, Normal accommodation, Unequal pupils, Right eye, Injected conj/sclera, Anterior chambers clear, Normal fundi, Other (IOP 13 on right. ). No: EOM palsy, Exudate, Fluorescein uptake Results - Vitals Vitals: Vital Signs - 24 hr 10/26/18 11:54 Temperature 36.3 C L Heart Rate 68 Respiratory 16 Rate Blood Pressure 135/100 H O2 Saturation 100 Oxygen O2 Source Room air - Labs Labs: Laboratory Tests 10/26/18 10/26/18 10/26/18 13:18 13:18 13:18 WBC 2.7 L RBC 3.69 L Hgb 13.1 L Hct 38.8 L MCV 105.1 H MCH 35.5 H MCHC 33.8 RDW 13.2 Plt Count 96 L MPV 11.7 H Neut # (Auto) 1.3 L Lymph # (Auto) 1.0 L Sullivan # (Auto) 0.3 Eos # (Auto) 0.1 Baso # (Auto) 0.0 Absolute Nucleated RBC 0.00 Nucleated RBC % 0.0 Manual Slide Review Indicated Platelet Estimate DECREASED (<130,000) Platelet Morphology NORMAL APPEARANCE RBC Morph Micro Appear 1+ POLYCHROMASIA ESR 48 H Sodium 137 Potassium 4.3 Chloride 102 Carbon Dioxide 26 Anion Gap 9.0 BUN 13 Creatinine 0.7 Estimated GFR (MDRD) 108 Glucose 103 H Calcium 9.3 Magnesium 2.0 Total Bilirubin 1.1 H AST 19 ALT 16 Alkaline Phosphatase 93 Total Protein 8.0 Albumin 4.0 Globulin 4.0 Albumin/Globulin Ratio 1.0 Lipase 38 PD MEDICAL DECISION MAKING - ED course Complexity details: considered differential (he has redness and some swelling of conjunctiva, with some puffy eyelid to my eval. No ptosis noted per se. 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 I am seeing eyelid puffy and promient but not seeming droopy, and pupils reactive here. He does have URI symptoms and now red/swelling of conjunctiva c/w viral conjunctivitis. Regarding the ataxia prolonged for months, could consider outpt MRI by his PCP or ENT. Departure - Departure Disposition: 01 Home, Self Care Clinical Impression: Balance disorder Conjunctivitis, acute Qualifiers: Acute conjunctivitis type: unspecified Laterality: right Qualified Code(s): H10.31 - Unspecified acute conjunctivitis, right eye Condition: Stable Record reviewed to determine appropriate education?: Yes Follow-Up: Pao Ny PA-C [Primary Care Provider] - Chriss Romero MD [Physician No Access] - Prescriptions: dexAMETHasone [Decadron] 4 mg PO DAILY #5 tablet Meclizine HCl [Motion Sickness Relief] 25 mg PO Q8H PRN #30 tablet PRN Reason: Dizziness Sulfacetamide 10% Ophth Drops [Sulfamide 10% Ophth Drops] 2 drops OPTH Q3H #1 bottle Comments: Your height appears to be just conjunctivitis. This may be viral related to the head cold symptoms you have. Sometimes it can be early bacterial. Use sulfacetamide eyedrops every 3 or 4 hours while awake for the next few days until this clears. Regarding your balance problems, you could consider trying Decadron anti- inflammatory and meclizine for dizziness over the next 4 to 5 days and see if it improves your symptoms. Still follow-up with your primary care and the ENT specialist regarding further treatments. Continue your therapy. Discharge Date/Time: 10/26/18 14:10
[2018-10-26 13:25] LABS: BASOPHILS % (AUTO) 0.4 %; EOSINOPHILS # (AUTO) 0.1 10^3/uL (0.0-0.7); EOSINOPHILS % (AUTO) 2.2 %; HGB - HEMOGLOBIN 13.1 g/dL (14.0-18.0); LYMPHOCYTES % (AUTO) 37.5 %; MEAN CORPUSCULAR HEMOGLOBIN 35.5 pg (27.0-31.0); MEAN CORPUSCULAR HGB CONC 33.8 g/dL (32.0-36.0); MEAN CORPUSCULAR VOLUME 105.1 fL (80.0-94.0); MEAN PLATELET VOLUME 11.7 fL (7.4-11.4); MONOCYTES # (AUTO) 0.3 10^3/uL (0.0-1.0); MONOCYTES % (AUTO) 10.7 %; NEUTROPHILS # (AUTO) 1.3 10^3/uL (1.5-6.6); NEUTROPHILS % (AUTO) 47.4 %; PLT - PLATELET COUNT 96 10^3/uL (130-450); RED BLOOD COUNT 3.69 10^6/uL (4.70-6.10); RED CELL DISTRIBUTION WIDTH 13.2 % (12.0-15.0); WHITE BLOOD COUNT 2.7 x10^3/uL (4.8-10.8)
[2018-10-26 13:41] LABS: BILIRUBIN,TOTAL 1.1 mg/dL (0.2-1.0); CALCIUM 9.3 mg/dL (8.5-10.3); CREATININE 0.7 mg/dL (0.6-1.2)
[2018-10-26 13:48] LABS: PLATELET ESTIMATE, MANUAL DECREASED (<130,000) (NORMAL); PLATELET MORPHOLOGY NORMAL APPEARANCE (NORMAL)
== END 2018-10-26 14:10 | disposition home or self-care (01) ==
LOC: ED 11:49
DX: R26.89 Other abnormalities of gait and mobility (principal); H10.31 Unspecified acute conjunctivitis, right eye; I10 Essential (primary) hypertension; E10.9 Type 1 diabetes mellitus without complications
CPT/HCPCS: 36415; 80053; 83690; 83735; 85025; 85651; 99282; 99283

== ENCOUNTER 2019-02-17 08:03 | Outpatient (CLI) | payer MEDICARE, OTHER ==
[2019-02-17] MEDS ORDERED: IOVERSOL 320 100 ML VIAL IVP ONE ×2 (08:19→08:46)
--- NOTE | 2019-02-17 09:29 | CT Report ---
Reason: DIZZINESS, ATAXIA Procedure Date: 02/17/2019 Accession Number: [id number] / [id number] Procedure: CT - ANGIO HEAD W/WO CPT Code: FULL RESULT: EXAM: CT ANGIOGRAM HEAD AND NECK. CT SCAN HEAD WITHOUT AND WITH CONTRAST. EXAM DATE: 02/17/2019 08:34 AM. CLINICAL HISTORY: Dizziness. Ataxia. Nausea. Blurred vision. COMPARISON: HEAD W/O 07/29/2018 3:16 PM. TECHNIQUE: Routine axial helical CTA imaging was performed from the aortic arch through the [place] of [place]. Routine axial CT imaging of the head was performed prior to and following contrast administration. Reconstructions: Routine multiplanar 3D MIP reconstructions. IV contrast: Optiray 320 80 mL. NASCET Criteria are used for stenosis measurements. In accordance with CT protocol optimization, one or more of the following dose reduction techniques were utilized for this exam: automated exposure control, adjustment of mA and/or KV based on patient size, or use of iterative reconstructive technique. FINDINGS: CT SCAN HEAD: Parenchyma: No intraparenchymal hemorrhage. No evidence of mass, midline shift, or CT findings of acute infarction. Mendez-white differentiation is distinct. Mild age-related volume loss is seen. Patchy white matter hypodensity is present. No abnormal intracranial enhancement. Extra-axial Spaces: Normal for age. No subdural or epidural collections identified. Ventricles: No hydrocephalus. No intraventricular hemorrhage. Sinuses and Orbits: Imaged paranasal sinuses, orbits, and mastoids show no significant abnormality. Bones: No evidence of fracture or calvarial defect. CT ANGIOGRAM EXTRACRANIAL CIRCULATION: Mild tortuosity and atherosclerotic calcification is seen involving the aortic arch and great vessels off the arch. Conjoined origin of right brachiocephalic and left common carotid arteries is noted. Great vessels are patent. Right Carotid: The common carotid, internal carotid, and external carotid arteries are widely patent. No dissection. Mild atherosclerotic calcification is seen at the CCA bifurcation and proximal ICA. No significant stenosis. Left Carotid: The common carotid, internal carotid, and external carotid arteries are widely patent. No dissection. Mild scattered atherosclerotic calcification is seen at the CCA bifurcation and proximal ICA. No stenosis. Vertebrals: The left vertebral artery is dominant. Right vertebral artery: Small in caliber. Atherosclerotic calcification is seen at the origin. This limits evaluation of stenosis. There likely is mild stenosis. Otherwise cervical vertebral artery is patent. No stenosis. Left vertebral artery: Dominant. Atherosclerotic calcification is seen at the origin and proximal V1 segment. There likely is focal severe, 80%, stenosis. Otherwise cervical vertebral artery is widely patent. No dissection. CT ANGIOGRAM INTRACRANIAL CIRCULATION: Unremarkable. No stenoses or aneurysms of the visualized vessels. No large vessel occlusion. The A-comm is patent. Neither P-comm is evident. The left vertebral artery is dominant primarily forming the basilar artery. Small caliber right vertebral artery primarily terminates as the right PICA. Distal V4 extension to the basilar artery is small in caliber. The dural venous sinuses are patent. Other: The visualized bones, soft tissues, and lung apices are unremarkable. Mild kyphosis of the cervical spine is seen. Spondylosis is noted in the cervical spine. Degenerative facet change predominates in the upper and mid cervical spine. Degenerative disk and uncovertebral change is seen in the mid and lower cervical spine. IMPRESSION: CT SCAN HEAD: 1. No acute intracranial abnormality. No abnormal enhancement. 2. Mild senescent change. Patchy white matter hypodensity is seen. This is nonspecific. This can be seen secondary to small vessel ischemic change. CT ANGIOGRAM NECK: 1. Mild tortuosity and atherosclerotic calcification seen in the aortic arch and great vessels off the arch. 2. Bilateral carotid circulation: Patent. Mild atherosclerotic calcification at CCA bifurcation and proximal ICA. No significant stenosis. 3. Right vertebral artery: Small in caliber. Atherosclerotic calcification at origin with likely mild stenosis. Otherwise patent. 4. Left vertebral artery: Dominant. Atherosclerotic calcification at origin with apparent severe, 80%, stenosis. Otherwise patent. CT ANGIOGRAM HEAD: 1. Unremarkable CTA of the head. No aneurysm. No significant stenosis. No large vessel occlusion. 2. Left vertebral artery is dominant primarily forming the basilar artery. Right vertebral artery is small in caliber and primarily terminates as the PICA. RADIA
== END 2019-02-17 08:04 | disposition home or self-care (01) ==
LOC: DI 08:03
PROVIDERS: ATTEND Psychiatry & Neurology Neurology
DX: I70.0 Atherosclerosis of aorta (principal); I67.2 Cerebral atherosclerosis; I65.02 Occlusion and stenosis of left vertebral artery; I65.23 Occlusion and stenosis of bilateral carotid arteries; R42 Dizziness and giddiness
CPT/HCPCS: 70496; 70498; Q9967